=== PATIENT | female | born 1995 | race African-American/Black ===

== ENCOUNTER 2018-08-27 11:02 | Emergency (ER) | payer OTHER ==
[~2018-08-27] VITALS: Ht 162.6 cm; Wt 71.6 kg
[2018-08-27 11:08] VITALS: BP 118/75
[2018-08-27] MEDS ORDERED: KETOROLAC 30 MG/1 ML ONE (11:25)
[2018-08-27] MEDS ORDERED: ACETAMINOPHEN 500 MG TABLET ONE (11:25)
[2018-08-27] MEDS ORDERED: KETOROLAC 30 MG/1 ML IM ONE (11:30)
[2018-08-27] MEDS ORDERED: ACETAMINOPHEN 500 MG TABLET PO ONE (11:30)
== END 2018-08-27 11:43 | disposition home or self-care (01) ==
LOC: ED 11:20
DX: H66.003 Acute suppurative otitis media without spontaneous rupture of ear drum, bilateral (principal)
CPT/HCPCS: 96372; 99283; J1885

== ENCOUNTER 2018-09-18 10:33 | Emergency (ER) | payer SELFPAY ==
[~2018-09-18] VITALS: Ht 160 cm; Wt 73.0 kg
--- NOTE | 2018-09-18 11:05 | NUR ---
PT TO ED AFTER POSITIVE TEST 3 DAYS AGO. PT REPORTS CRAMPING FOR 2 DAYS AND MILD NAUSEA. DENIES VB AND VOMITING. LMP 08/18/2018. CONNECTED TO MONITORS. VSS. AWAITING EDMD ASSESSMENT.
--- NOTE | 2018-09-18 11:31 | NUR ---
UA COLLECTED AND SENT.
--- NOTE | 2018-09-18 11:35 | NUR ---
PT TO US
[2018-09-18 11:43] LABS: MICROSCOPIC NOT IND
[2018-09-18 11:48] LABS: CULTURE INDICATED? NO
--- NOTE | 2018-09-18 12:27 | NUR ---
PT BACK FROM US. VSS. NO NEEDS EXPRESSED. CALL [facility] WITHIN REACH. AWAITING RESULTS.
--- NOTE | 2018-09-18 12:50 | NUR ---
Mary cornejo in ED - 09/18/18 at 1305 by [email or web address] pt to ct.
--- NOTE | 2018-09-18 13:33 | NUR ---
all results back at this time. chart up for recheck.
[2018-09-18 13:34] VITALS: BP 95/46
--- NOTE | 2018-09-18 13:34 | NUR ---
PT RESTING IN ROOM WITH FAMILY AT BEDSIDE. VSS. NO NEEDS EXPRESSED. CALL [facility] WITHIN REACH. AWAITING RECHECK.
== END 2018-09-18 13:56 | disposition home or self-care (01) ==
LOC: ED 12:26
DX: O26.891 Other specified pregnancy related conditions, first trimester (principal); R10.30 Lower abdominal pain, unspecified
CPT/HCPCS: 36415; 76830; 81003; 84702; 86901; 99284

== ENCOUNTER 2019-04-08 20:07 | Outpatient (CLI) | payer SELFPAY ==
[2019-04-08 21:19] LABS: MICROSCOPIC INDICATED
[2019-04-08 21:27] LABS: AMPHETAMINE SCREEN, URINE Negative (Negative); BARBITURATE SCREEN, URINE Negative (Negative); BENZODIAZEPINE SCREEN, URINE Negative (Negative); CANNABINOID SCREEN, URINE Negative (Negative); COCAINE SCREEN, URINE Negative (Negative); METHADONE SCREEN, URINE Negative (Negative); OPIATE SCREEN, URINE Negative (Negative)
== END 2019-04-08 22:30 | disposition home or self-care (01) ==
LOC: LDOP 20:07
PROVIDERS: ATTEND Obstetrics & Gynecology
DX: O36.8130 Decreased fetal movements, third trimester, not applicable or unspecified (principal); Z3A.33 33 weeks gestation of pregnancy
CPT/HCPCS: 59025; 80307; 81001; 87086; 99211; G0463